=== PATIENT | female | born 1975 | race American Indian/Alaskan Native ===

== ENCOUNTER 2020-05-23 11:27 | Emergency (ER) | payer MEDICARE ==
--- NOTE | 2020-05-23 11:40 | Event Note ---
ED Screening Note Date of service: 05/23/20 Time: 11:39 ED Screening Note: Patient presents with complaints of heavy vaginal bleeding and pelvic pain x yesterday States history of uterine fibroids and anemia, reports has had to have blood transfusions Admits to fatigue This initial assessment/diagnostic orders/clinical plan/treatment(s) is/are subject to change based on patients health status, clinical progression and re- assessment by fellow clinical providers in the ED. Further treatment and workup at subsequent clinical providers discretion. Patient/guardian urged not to elope from the ED as their condition may be serious if not clinically assessed and managed. Initial orders include: Labs
[2020-05-23 12:20] LABS: Basophils % (Auto) 0.4 % (0.0-1.8); Eosinophils # (Auto) 0.4 K/mm3 (0.0-0.4); Eosinophils % (Auto) 4.2 % (0.0-4.3); Hemoglobin 11.1 gm/dl (10.1-14.3); Lymphocytes # (Auto) 3.3 K/mm3 (1.2-5.4); Lymphocytes % (Auto) 38.1 % (13.4-35.0); Mean Corpuscular HGB Conc 34 % (30-34); Mean Corpuscular Volume 78 fl (79-97); Monocytes # (Auto) 0.9 K/mm3 (0.0-0.8); Monocytes % (Auto) 10.6 % (0.0-7.3); Platelet Count 410 K/mm3 (140-440); Red Blood Count 4.23 M/mm3 (3.65-5.03); Red Cell Distribution Width 19.3 % (13.2-15.2)
[2020-05-23 12:42] LABS: Alanine Aminotransferase 30 units/L (7-56); BUN/Creatinine Ratio 13; Blood Urea Nitrogen 10 mg/dL (7-17); Calcium 10.1 mg/dL (8.4-10.2); Hemolysis Index 8
[2020-05-23 13:31] LABS: Bilirubin,Urine TNR (Negative); Color,Urine Red (Yellow); RBC,Urine > 182.0 /HPF (0.0-6.0)
[2020-05-23 13:32] LABS: Blood,Urine TNR (Negative); PH,Urine TNR (5.0-7.0); Protein,Urine TNR mg/dL (Negative); Urobilinogen,Urine TNR mg/dL (<2.0)
[2020-05-23] MEDS ORDERED: ONDANSETRON 4 MG/2 ML INJ IV ONE (14:10)
[2020-05-23] MEDS ORDERED: KETOROLAC 30 MG/1 ML INJ IV ONE (14:10)
[2020-05-23] MEDS ORDERED: SODIUM CHLORIDE 0.9% 1000 ML 1,000 ML IV ONE (14:10)
--- NOTE | 2020-05-23 14:18 | Emergency Department Report ---
ED General Adult HPI - General Chief complaint: Vaginal Bleeding Stated complaint: NAUSEA/ABNORMAL PERIOD/PAIN Time Seen by Provider: 05/23/20 11:38 Source: patient Mode of arrival: Ambulatory Limitations: No Limitations - History of Present Illness Initial comments: Patient is a 45-year-old female with history of heavy bleeding secondary to uterine fibroids who presents to the emergency department with complaint of abdominal pain, nausea, heavy vaginal bleeding. Patient states that this has happened since yesterday. She denies vomiting but has had some nausea. She states that she was scheduled to have her fibroids removed in 2019 however this was canceled due to Covid. She is not currently . She states she is not currently on control. - Related Data Previous Rx's Medication Instructions Recorded Last Taken Type Ketorolac [Toradol] 10 mg PO Q6H PRN 5 Days #20 tablet 05/23/20 Unknown Rx Nitrofurantoin [place]/M-Cryst 100 mg PO Q12HR 5 Days #10 capsule 05/23/20 Unknown Rx [Macrobid CAP] Ondansetron [Zofran Odt] 4 mg PO Q8HR PRN #20 tab.rapdis 05/23/20 Unknown Rx medroxyPROGESTERone ACETATE 10 mg PO QDAY 10 Days #10 tablet 05/23/20 Unknown Rx [Provera] Allergies Allergy/AdvReac Type Severity Reaction Status Date / Time morphine Allergy Rash Verified 05/23/20 11:40 ED Review of Systems ROS: Stated complaint: NAUSEA/ABNORMAL PERIOD/PAIN Other details as noted in HPI Constitutional: denies: chills, diaphoresis, fever Eyes: denies: eye discharge ENT: denies: throat pain Respiratory: no symptoms reported Cardiovascular: denies: chest pain Endocrine: no symptoms reported Gastrointestinal: abdominal pain, nausea Genitourinary: other (Vaginal bleeding). denies: dysuria Musculoskeletal: denies: back pain Skin: denies: rash Neurological: denies: headache Psychiatric: denies: anxiety, depression Hematological/Lymphatic: easy bleeding ED Past Medical Hx - Past Medical History Previous Medical History?: No - Surgical History Past Surgical History?: Yes Additional Surgical History: C section - Social History Smoking Status: Never Smoker Substance Use Type: None - Medications Home Medications: Home Medications Medication Instructions Recorded Confirmed Last Taken Type Ketorolac [Toradol] 10 mg PO Q6H PRN 5 Days #20 tablet 05/23/20 Unknown Rx Nitrofurantoin [place]/M-Cryst 100 mg PO Q12HR 5 Days #10 capsule 05/23/20 Unknown Rx [Macrobid CAP] Ondansetron [Zofran Odt] 4 mg PO Q8HR PRN #20 tab.rapdis 05/23/20 Unknown Rx medroxyPROGESTERone ACETATE 10 mg PO QDAY 10 Days #10 tablet 05/23/20 Unknown Rx [Provera] ED Physical Exam - General Limitations: No Limitations General appearance: alert - Head Head exam: Present: atraumatic, normocephalic - Eye Eye exam: Present: normal appearance Pupils: Present: normal accommodation - ENT ENT exam: Present: normal exam - Neck Neck exam: Present: normal inspection - Respiratory Respiratory exam: Absent: respiratory distress - Cardiovascular Cardiovascular Exam: Present: other (Warm well perfused extremities) - GI/Abdominal GI/Abdominal exam: Present: soft, tenderness (Suprapubic). Absent: distended - Rectal Rectal exam: Present: deferred - External exam: Present: other (Patient has deferred exam) - Extremities Exam Extremities exam: Present: normal inspection - Back Exam Back exam: Present: normal inspection - Neurological Exam Neurological exam: Present: alert, oriented X3 - Psychiatric Psychiatric exam: Present: normal affect - Skin Skin exam: Present: warm, dry, intact ED Course Vital Signs 05/23/20 11:39 Temperature 98.4 F Pulse Rate 85 Respiratory 16 Rate Blood Pressure 132/68 [Right] O2 Sat by Pulse 98 Oximetry - Reevaluation(s) Reevaluation #1: 05/23/20 15:27 Patient is improved. She is tolerating p.o. We discussed putting patient on control or a medication to stop the heavy bleeding. We have decided on Provera. Patient to follow-up with [facility]PUT[facility] AIDE. ED Medical Decision Making - Lab Data Result diagrams: 05/23/20 11:41 05/23/20 11:41 - Medical Decision Making Patient is a 45-year-old female with history of uterine fibroids who presents to the ED with complaint of heavy vaginal bleeding. LMP yesterday, she is currently soaking pads every 2 hours. Initial evaluation reveals a soft abdomen with mild suprapubic ttp. She is hemodynamically stable and appears comfortable. She would like to defer a pelvic exam and US. test is negative. Plan to treat for mild UTI, give zofran, toradol, NS. Will reassess. Critical care attestation.: If time is entered above; I have spent that time in minutes in the direct care of this critically ill patient, excluding procedure time. ED Disposition Clinical Impression: UTI (urinary tract infection), Menorrhagia, Nausea Disposition: TO HOME OR SELFCARE Is pt being admited?: No Does the pt Need Aspirin: No Condition: Stable Instructions: Abnormal Uterine Bleeding, [id number], Urinary Tract Infection, Adult Prescriptions: Nitrofurantoin [place]/M-Cryst [Macrobid CAP] 100 mg PO Q12HR 5 Days #10 capsule medroxyPROGESTERone ACETATE [Provera] 10 mg PO QDAY 10 Days #10 tablet Ketorolac [Toradol] 10 mg PO Q6H PRN 5 Days #20 tablet PRN Reason: Pain Ondansetron [Zofran Odt] 4 mg PO Q8HR PRN #20 tab.rapdis PRN Reason: Nausea Referrals: TAZ CLANCY [Other] - 3-5 Days LEEROY VAUGHN JR, MD [Staff Physician] - 3-5 Days
[2020-05-23 15:55] VITALS: BP 132/72
== END 2020-05-23 15:55 | disposition home or self-care (01) ==
LOC: ED 11:27
DX: N39.0 Urinary tract infection, site not specified (principal); N92.0 Excessive and frequent menstruation with regular cycle; R11.0 Nausea; Z98.890 Other specified postprocedural states; Z79.899 Other long term (current) drug therapy; Z88.8 Allergy status to other drugs, medicaments and biological substances
CPT/HCPCS: 36415; 80053; 81001; 84703; 85025; 86850; 86900; 86901; 87086; 96361; 96374; 96375; 99283; J1885; J2405; J7030

== ENCOUNTER 2020-07-28 09:00 | Emergency (ER) | payer MEDICARE ==
[2020-07-28 09:15] VITALS: BP 112/72
[2020-07-28] MEDS ORDERED: KETOROLAC 60 MG/2 ML INJ IM ONE (09:26)
--- NOTE | 2020-07-28 09:26 | Emergency Department Report ---
ED Lower Extremity HPI - General Chief Complaint: Extremity Injury, Lower Stated Complaint: RT KNEE PAIN/MED REFILL Time Seen by Provider: 07/28/20 09:24 Source: patient Mode of arrival: Ambulatory Limitations: No Limitations - History of Present Illness Initial Comments: Patient is a 45-year-old pleasant -[place] female that comes to the ER with right knee pain. She has recently started working out and has noticed some swelling to her lateral upper kneecap area. She has no fall or trauma per se. She is ambulatory. -: Gradual, days(s) Injury: Knee: Right Place: home Severity: mild Improves With: immobilization Worsens With: movement - Related Data Previous Rx's Medication Instructions Recorded Last Taken Type Naproxen [Naprosyn] 500 mg PO BID PRN #20 tablet 07/28/20 Unknown Rx predniSONE [Deltasone] 20 mg PO DAILY #5 tablet 07/28/20 Unknown Rx Allergies Allergy/AdvReac Type Severity Reaction Status Date / Time morphine Allergy Rash Verified 07/28/20 09:11 ED Review of Systems ROS: Stated complaint: RT KNEE PAIN/MED REFILL Other details as noted in HPI Comment: All other systems reviewed and negative ED Past Medical Hx - Past Medical History Previous Medical History?: No - Surgical History Past Surgical History?: Yes Additional Surgical History: C section - Social History Smoking Status: Never Smoker Substance Use Type: Alcohol - Medications Home Medications: Home Medications Medication Instructions Recorded Confirmed Last Taken Type Naproxen [Naprosyn] 500 mg PO BID PRN #20 tablet 07/28/20 Unknown Rx predniSONE [Deltasone] 20 mg PO DAILY #5 tablet 07/28/20 Unknown Rx ED Physical Exam - General Limitations: No Limitations General appearance: alert, in no apparent distress - Head Head exam: Present: atraumatic, normocephalic - Eye Eye exam: Present: normal appearance - ENT ENT exam: Present: mucous membranes moist - Neck Neck exam: Present: normal inspection - Respiratory Respiratory exam: Present: normal lung sounds bilaterally. Absent: respiratory distress - Cardiovascular Cardiovascular Exam: Present: regular rate, normal rhythm. Absent: systolic murmur, diastolic murmur, rubs, gallop - GI/Abdominal GI/Abdominal exam: Present: soft, normal bowel sounds - Extremities Exam Extremities exam: Present: normal inspection - Expanded Lower Extremity Exam Right Upper Leg exam: Present: normal inspection Knee exam: Present: full ROM, swelling, effusion, full knee extension. Absent: tenderness, abrasion, laceration, ecchymosis, deformity, crepidus, dislocation, erythema Lower Leg exam: Present: normal inspection, full ROM Ankle exam: Present: normal inspection, full ROM Foot/Toe exam: Present: normal inspection Neuro vascular tendon exam: Present: no vascular compromise Gait: Positive: observed and limited by pain 1 - small effusion - Back Exam Back exam: Present: normal inspection - Neurological Exam Neurological exam: Present: alert, oriented X3 - Psychiatric Psychiatric exam: Present: normal affect, normal mood - Skin Skin exam: Present: warm, dry, intact, normal color. Absent: rash ED Course Vital Signs 07/28/20 09:14 Temperature 98.5 F Pulse Rate 73 Respiratory 20 Rate Blood Pressure 112/72 O2 Sat by Pulse 100 Oximetry ED Lower Extremity MDM - Medical Decision Making soft tissue injury/no fall small effusion on exam immobilizer and crutches for comfort IM toradol dc home with dc poc including pcp and ortho follow up referrals given pt asked for refill of valium - told her we can not do that in ER - she will need to see her pcp Vital Signs 07/28/20 09:14 Temperature 98.5 F Pulse Rate 73 Respiratory 20 Rate Blood Pressure 112/72 O2 Sat by Pulse 100 Oximetry - Differential Diagnosis effusion Critical care attestation.: If time is entered above; I have spent that time in minutes in the direct care of this critically ill patient, excluding procedure time. ED Disposition Clinical Impression: Knee pain, right Disposition: DC-01 TO HOME OR SELFCARE Is pt being admited?: No Does the pt Need Aspirin: No Condition: Stable Instructions: Knee Effusion Additional Instructions: immobilizer and crutches for comfort med as ordered today follow up with pcp and ortho referrals below Prescriptions: predniSONE [Deltasone] 20 mg PO DAILY #5 tablet Naproxen [Naprosyn] 500 mg PO BID PRN #20 tablet PRN Reason: Pain Referrals: PRIMARY MD NGA [Primary Care Provider] - 3-5 Days LORI FRAGOSO MD [Staff Physician] - 3-5 Days SAMY VALENCIA MD [Staff Physician] - 3-5 Days Time of Disposition: 09:35
== END 2020-07-28 10:27 | disposition home or self-care (01) ==
LOC: ED 09:00
DX: M25.561 Pain in right knee (principal); Z98.890 Other specified postprocedural states; Z79.899 Other long term (current) drug therapy; Z88.6 Allergy status to analgesic agent
CPT/HCPCS: 96372; 99283; J1885

== ENCOUNTER 2020-09-17 03:04 | Emergency (ER) | payer MEDICARE ==
[2020-09-17 03:12] VITALS: BP 155/76
[2020-09-17 03:36] LABS: Bilirubin,Urine NEG (Negative); Blood,Urine LG (Negative); Color,Urine Red (Yellow); Mucus,Urine FEW /HPF; Urobilinogen,Urine < 2.0 mg/dL (<2.0)
[2020-09-17 03:37] LABS: RBC,Urine > 182.0 /HPF (0.0-6.0)
[2020-09-17] MEDS ORDERED: FAMOTIDINE 20 MG/2 ML INJ IV ONE (03:42)
[2020-09-17] MEDS ORDERED: ONDANSETRON 4 MG/2 ML INJ IV ONE (03:42)
[2020-09-17] MEDS ORDERED: DICYCLOMINE 20 MG/2 ML INJ IM ONE (03:42)
[2020-09-17] MEDS ORDERED: SODIUM CHLORIDE 0.9% 1000 ML 1,000 ML IV ONE (03:43)
[2020-09-17 04:48] LABS: Basophils # (Auto) 0.1 K/mm3 (0.0-0.1); Basophils % (Auto) 0.6 % (0.0-1.8); Eosinophils # (Auto) 0.2 K/mm3 (0.0-0.4); Hematocrit 33.8 % (30.3-42.9); Hemoglobin 10.7 gm/dl (10.1-14.3); Lymphocytes # (Auto) 2.2 K/mm3 (1.2-5.4); Lymphocytes % (Auto) 21.9 % (13.4-35.0); Mean Corpuscular HGB Conc 32 % (30-34); Mean Corpuscular Volume 78 fl (79-97); Monocytes # (Auto) 0.7 K/mm3 (0.0-0.8); Monocytes % (Auto) 6.5 % (0.0-7.3); Platelet Count 409 K/mm3 (140-440); Red Blood Count 4.32 M/mm3 (3.65-5.03); Red Cell Distribution Width 17.7 % (13.2-15.2)
[2020-09-17 05:36] LABS: Alanine Aminotransferase 17 units/L (7-56); BUN/Creatinine Ratio 11; Blood Urea Nitrogen 9 mg/dL (7-17); Calcium 9.9 mg/dL (8.4-10.2); Hemolysis Index 8
--- NOTE | 2020-09-17 05:42 | Emergency Department Report ---
ED N/V/D HPI - General Chief complaint: Abdominal Pain Stated complaint: POSSIBLE FOOD POISONING Source: patient Mode of arrival: Ambulatory Limitations: No Limitations - History of Present Illness Initial comments: Patient is a 45-year-old -[place] female with a history of iron deficiency anemia and anemia who presents to the ED with complaint of acute onset persistent intractable nausea, vomiting, diarrhea and epigastric pain with lack of appetite for the last 2 hours after eating salad from a fast food restaurant 6 hours prior to arrival in the ED for evaluation. Patient states that she has not been able to keep anything down since the onset of symptoms. Patient states that she has had multiple nausea, vomiting and diarrhea episodes and that her pain is mainly epigastric and that it gets worse whenever she has vomiting episodes. Patient states that she is currently on her menstrual cycle. Patient denies hematemesis, fever, chills, dizziness, syncope, headache, dysuria, urine frequency and urgency, hematochezia, chest pain or shortness of breath, cough, sore throat, change in vision or back pain. MD complaint: nausea, vomiting, diarrhea, abdominal pain -: Sudden, hour(s) (2) Description of Vomiting: food contents, watery, bilious Description of Diarrhea: water Associated Abdominal Pain: Yes (diffuse) Location: diffuse Radiation: none Severity: moderate Pain Scale: 7 Quality: cramping, dull Consistency: constant Improves with: none Worsens with: eating, vomiting Context: possible food poisoning Associated Symptoms: denies other symptoms, loss of appetite, malaise, n ausea/vomiting. denies: myalgias, chest pain, cough, diaphoresis, fever/chills, headaches, rash, dysuria, shortness of breath, syncope, weakness, other - Related Data Previous Rx's Medication Instructions Recorded Last Taken Type Naproxen [Naprosyn] 500 mg PO BID PRN #20 tablet 07/28/20 Unknown Rx predniSONE [Deltasone] 20 mg PO DAILY #5 tablet 07/28/20 Unknown Rx Dicyclomine [Bentyl] 20 mg PO Q6H PRN #30 tablet 09/17/20 Unknown Rx Famotidine [Pepcid] 20 mg PO BID #60 tablet 09/17/20 Unknown Rx Ondansetron [Zofran Odt] 4 mg PO Q6HR PRN #20 tab.rapdis 09/17/20 Unknown Rx Allergies Allergy/AdvReac Type Severity Reaction Status Date / Time morphine Allergy Rash Verified 07/28/20 09:11 ED Review of Systems ROS: Stated complaint: POSSIBLE FOOD POISONING Other details as noted in HPI Constitutional: denies: chills, fever Eyes: denies: eye pain, eye discharge, vision change ENT: denies: ear pain, throat pain Respiratory: denies: cough, shortness of breath, wheezing Cardiovascular: denies: chest pain, palpitations Endocrine: no symptoms reported Gastrointestinal: abdominal pain, nausea, vomiting, diarrhea Genitourinary: denies: urgency, dysuria, discharge Musculoskeletal: denies: back pain, joint swelling, arthralgia Skin: denies: rash, lesions Neurological: denies: headache, weakness, paresthesias Psychiatric: denies: anxiety, depression Hematological/Lymphatic: denies: easy bleeding, easy bruising ED Past Medical Hx - Past Medical History Previous Medical History?: Yes Additional medical history: Anemia - Surgical History Past Surgical History?: Yes Additional Surgical History: C section - Social History Smoking Status: Former Smoker Substance Use Type: None - Medications Home Medications: Home Medications Medication Instructions Recorded Confirmed Last Taken Type Naproxen [Naprosyn] 500 mg PO BID PRN #20 tablet 07/28/20 Unknown Rx predniSONE [Deltasone] 20 mg PO DAILY #5 tablet 07/28/20 Unknown Rx Dicyclomine [Bentyl] 20 mg PO Q6H PRN #30 tablet 09/17/20 Unknown Rx Famotidine [Pepcid] 20 mg PO BID #60 tablet 09/17/20 Unknown Rx Ondansetron [Zofran Odt] 4 mg PO Q6HR PRN #20 tab.rapdis 09/17/20 Unknown Rx ED Physical Exam - General Limitations: No Limitations General appearance: alert, in no apparent distress - Head Head exam: Present: atraumatic, normocephalic, normal inspection - Eye Eye exam: Present: normal appearance, PERRL, EOMI Pupils: Present: normal accommodation - ENT ENT exam: Present: normal exam, normal orophraynx, mucous membranes moist, TM's normal bilaterally, normal external ear exam - Neck Neck exam: Present: normal inspection, full ROM - Respiratory Respiratory exam: Present: normal lung sounds bilaterally. Absent: respiratory distress, wheezes, rales, stridor, chest wall tenderness, accessory muscle use, decreased breath sounds, prolonged expiratory - Cardiovascular Cardiovascular Exam: Present: regular rate, normal rhythm, normal heart sounds. Absent: systolic murmur, diastolic murmur, rubs, gallop - GI/Abdominal GI/Abdominal exam: Present: soft, normal bowel sounds. Absent: tenderness, gua rding, hyperactive bowel sounds, hypoactive bowel sounds, organomegaly - Extremities Exam Extremities exam: Present: normal inspection, full ROM, normal capillary refill - Back Exam Back exam: Present: normal inspection, full ROM. Absent: tenderness, CVA tenderness (R), CVA tenderness (L), muscle spasm, paraspinal tenderness, vertebral tenderness - Neurological Exam Neurological exam: Present: alert, oriented X3, CN II-XII intact, normal gait, reflexes normal - Psychiatric Psychiatric exam: Present: normal affect, normal mood - Skin Skin exam: Present: warm, dry, intact, normal color. Absent: rash ED Course Vital Signs 09/17/20 03:09 Temperature 98.9 F Pulse Rate 84 Respiratory 20 Rate Blood Pressure 155/76 O2 Sat by Pulse 99 Oximetry ED Medical Decision Making - Lab Data Result diagrams: 09/17/20 04:16 09/17/20 04:16 - Medical Decision Making This is a 45-year-old -[place] female with a history of iron deficiency anemia and anemia who presents to the ED with complaint of acute onset persistent intractable nausea, vomiting, diarrhea and epigastric pain with lack of appetite for the last 2 hours after eating salad from a fast food restaurant 6 hours prior to arrival in the ED for evaluation. Patient states that she has not been able to keep anything down since the onset of symptoms. Patient states that she has had multiple nausea, vomiting and diarrhea episodes and that her pain is mainly epigastric and that it gets worse whenever she has vomiting episodes. Patient states that she is currently on her menstrual cycle. In the ED, patient is alert and oriented x3 and is not in any distress and is hemodynamically stable. Patient was treated in the ED with antiemetics, antacids and pain medications. Patient also received normal saline 1 L IV bolus x1. Lab test results were reviewed and are all nonactionable. On reevaluation, patient symptoms resolved in the ED with treatment, patient passed oral fluid challenge in the ED. Based on the history and physical exam findings, the patient symptoms are likely due to viral gastroenteritis due to food poisoning. Other differential diagnoses were also considered including GERD or dehydration. Patient was therefore discharged home on antiemetics, antacids and pain medications. Patient was advised to maintain a clear liquid diet for 12 to 24 hours while taking medications, and was advised to follow-up with her primary care physician in 3 to 5 days for reevaluation. Patient is advised return to the ED immediately if symptoms get worse. - Differential Diagnosis gastroenteritis; GERD; Dehydration; UTI Critical care attestation.: If time is entered above; I have spent that time in minutes in the direct care of this critically ill patient, excluding procedure time. ED Disposition Clinical Impression: Viral gastroenteritis, Nausea, vomiting and diarrhea Disposition: TO HOME OR SELFCARE Is pt being admited?: No Does the pt Need Aspirin: No Condition: Stable Instructions: Abdominal Pain (ED), Viral Gastroenteritis, Adult, [id number], Nausea and Vomiting, Adult, [id number], Diarrhea, Adult, [id number] Additional Instructions: Lab test results were reviewed and are all nonactionable. Your symptoms are likely due to viral gastroenteritis following food poisoning. Therefore maintain a clear liquid diet for 12-24 hrs., drink plenty of fluids and take medications for nausea and vomiting as advised. Return to the ED immediately if symptoms get worse. Otherwise follow-up with your primary care physician in 3 to 5 days for reevaluation. Prescriptions: Dicyclomine [Bentyl] 20 mg PO Q6H PRN #30 tablet PRN Reason: abdominal pain Famotidine [Pepcid] 20 mg PO BID #60 tablet Ondansetron [Zofran Odt] 4 mg PO Q6HR PRN #20 tab.rapdis PRN Reason: Nausea And Vomiting Referrals: [facility] [Provider Group] - 3-5 Days Forms: Work/School Release Form(ED) Time of Disposition: 05:45 Print Language: ANGUILLAN
== END 2020-09-17 06:11 | disposition home or self-care (01) ==
LOC: ED 03:04
DX: A08.4 Viral intestinal infection, unspecified (principal); R11.2 Nausea with vomiting, unspecified; Z98.890 Other specified postprocedural states; Z87.891 Personal history of nicotine dependence; Z79.899 Other long term (current) drug therapy; Z88.8 Allergy status to other drugs, medicaments and biological substances
CPT/HCPCS: 36415; 80053; 81001; 83690; 84703; 85025; 96361; 96372; 96374; 96375; 99283; J0500; J2405; J7030

== ENCOUNTER 2020-10-25 14:49 | Emergency (ER) | payer MEDICARE ==
[2020-10-25 15:28] VITALS: BP 134/84
--- NOTE | 2020-10-25 15:44 | Event Note ---
ED Screening Note Date of service: 10/25/20 Time: 15:42 ED Screening Note: 45-year-old female patient presents emergency department with complaints of diffuse pruritus and facial swelling starting last night and worsening this morning. Patient suspects she is experiencing an allergic reaction to a new type of hair dye she used last night. Patient has washed the dye out of her hair. Patient took 50 mg of Benadryl at approximately 12:30 PM. Tachycardic in triage. General: Awake, appropriately interactive, no acute distress. ENT: Airway is patent. No angioedema. Neck: Supple. Full range of motion intact. Cardiovascular: Normal peripheral perfusion. Pulmonary: Clear to auscultation bilaterally. No wheezing or stridor. No hypoxia. No respiratory distress. Speaking in full sentences. Skin: No apparent rashes or lesions. Neurological: No facial asymmetry. Speech is clear. Follows commands. Patient is alert and oriented. Musculoskeletal: Moves all four extremities spontaneously with normal range of motion. Psych: Cooperative. Appropriate mood and affect. I have greeted and performed a focused rapid initial assessment of this patient. A comprehensive ED assessment and evaluation of the patient, analysis of all test results, and completion of the medical decision-making process will be conducted by additional ED providers. This initial assessment/diagnostic orders/clinical plan/treatment(s) is/are subject to change based on patients health status, clinical progression and re-assessment. Further treatment and workup at subsequent clinical provider's discretion. Patient/guardian urged not to elope from the ED as their condition may be serious if not clinically a ssessed and managed.
[2020-10-25] MEDS ORDERED: SODIUM CHLORIDE 0.9% 1000 ML 1,000 ML IV ONE (21:09)
[2020-10-25] MEDS ORDERED: diphenhydrAMINE 50 MG/ML VIAL IV STA (21:09)
[2020-10-25] MEDS ORDERED: dexAMETHasone 4 MG/ML VIAL IV ONE (21:09)
[2020-10-25] MEDS ORDERED: FAMOTIDINE 20 MG/2 ML INJ IV ONE (21:10)
--- NOTE | 2020-10-25 21:21 | Emergency Department Report ---
ED Allergic Reaction HPI - General Chief complaint: Allergic Reaction Stated complaint: ALLERGIC REACTION/ALL OVER Time Seen by Provider: 10/25/20 21:09 Source: patient Mode of arrival: Ambulatory Limitations: No Limitations - History of Present Illness Initial Comments: Very pleasant 45-year-old F [place] female presents emerged department complaining pruritus and swelling to her face after trying to her hair a day or so ago and having a reaction to the chemical. She was states since using the dye she is having very painful itching burning scalp followed by facial swelling lip tingling and tingling to the tongue. She reports no drooling or odynophagia. Ports no fever, chills, sweats. No chest pain no notes no shortness of breath or wheezing. No rash no rashes to any other portions of the body MD Complaint: allergic reaction, facial swelling - Related Data Previous Rx's Medication Instructions Recorded Last Taken Type Naproxen [Naprosyn] 500 mg PO BID PRN #20 tablet 07/28/20 Unknown Rx predniSONE [Deltasone] 20 mg PO DAILY #5 tablet 07/28/20 Unknown Rx Dicyclomine [Bentyl] 20 mg PO Q6H PRN #30 tablet 09/17/20 Unknown Rx Famotidine [Pepcid] 20 mg PO BID #60 tablet 09/17/20 Unknown Rx Ondansetron [Zofran Odt] 4 mg PO Q6HR PRN #20 tab.rapdis 09/17/20 Unknown Rx hydrOXYzine HCL [Atarax] 25 mg PO Q6HR PRN #20 tablet 10/25/20 Unknown Rx predniSONE [Deltasone] 20 mg PO QDAY #5 tab 10/25/20 Unknown Rx Allergies Allergy/AdvReac Type Severity Reaction Status Date / Time morphine Allergy Rash Verified 07/28/20 09:11 ED Review of Systems ROS: Stated complaint: ALLERGIC REACTION/ALL OVER Other details as noted in HPI Comment: All other systems reviewed and negative ED Past Medical Hx - Past Medical History Previous Medical History?: No Additional medical history: Anemia - Surgical History Past Surgical History?: Yes Additional Surgical History: C section - Social History Smoking Status: Former Smoker Substance Use Type: None - Medications Home Medications: Home Medications Medication Instructions Recorded Confirmed Last Taken Type Naproxen [Naprosyn] 500 mg PO BID PRN #20 tablet 07/28/20 Unknown Rx predniSONE [Deltasone] 20 mg PO DAILY #5 tablet 07/28/20 Unknown Rx Dicyclomine [Bentyl] 20 mg PO Q6H PRN #30 tablet 09/17/20 Unknown Rx Famotidine [Pepcid] 20 mg PO BID #60 tablet 09/17/20 Unknown Rx Ondansetron [Zofran Odt] 4 mg PO Q6HR PRN #20 tab.rapdis 09/17/20 Unknown Rx hydrOXYzine HCL [Atarax] 25 mg PO Q6HR PRN #20 tablet 10/25/20 Unknown Rx predniSONE [Deltasone] 20 mg PO QDAY #5 tab 10/25/20 Unknown Rx ED Physical Exam - General Limitations: No Limitations General appearance: alert, in no apparent distress - Head Head exam: Present: normocephalic - Expanded Head Exam Expanded Head exam: Present: general tenderness 1 - Erythema redness tenderness with palpation 2 - Redness swelling to the 3 - Facial swelling some swelling to this region. - Eye Eye exam: Present: normal appearance, PERRL, EOMI Pupils: Present: normal accommodation - ENT ENT exam: Present: normal exam, mucous membranes moist, other (Swelling to the periorbital region. Tongue is of normal size.) - Neck Neck exam: Present: normal inspection, full ROM - Respiratory Respiratory exam: Present: normal lung sounds bilaterally. Absent: respiratory distress, wheezes, rales, chest wall tenderness, accessory muscle use, decreased breath sounds - Cardiovascular Cardiovascular Exam: Present: regular rate, normal rhythm. Absent: systolic murmur, diastolic murmur, rubs, gallop - GI/Abdominal GI/Abdominal exam: Present: soft, normal bowel sounds - Extremities Exam Extremities exam: Present: normal inspection - Back Exam Back exam: Present: normal inspection - Neurological Exam Neurological exam: Present: alert, oriented X3 - Psychiatric Psychiatric exam: Present: normal affect, normal mood - Skin Skin exam: Present: warm, dry, erythema. Absent: rash ED Course Vital Signs 10/25/20 15:22 Pulse Rate 117 H Respiratory 18 Rate Blood Pressure 134/84 [Right] O2 Sat by Pulse 99 Oximetry ED Medical Decision Making - Medical Decision Making This patient presents with symptoms consistent with acute hypersensitivity reaction, likely acute allergic reaction. Presentation not consistent with acute anaphylaxis (lack of pulmonary, dermatologic, cardiovascular or GI symptoms, lack of hypotension or exposure to known allergen), angioedema, serum sickness(no recent drug exposure, lack of fevers, arthralgias), ingestion of pre formed toxin. No evidence of airway compromise or shock at this time. Plan to treat for allergic reaction with H2/H1 blockers, steroids. No indication for epinephrine at this time. Plan Critical care attestation.: If time is entered above; I have spent that time in minutes in the direct care of this critically ill patient, excluding procedure time. ED Disposition Clinical Impression: Allergic reaction Disposition: DC-01 TO HOME OR SELFCARE Is pt being admited?: No Does the pt Need Aspirin: No Condition: Stable Instructions: Contact Dermatitis, Allergies, Adult Prescriptions: hydrOXYzine HCL [Atarax] 25 mg PO Q6HR PRN #20 tablet PRN Reason: Itching predniSONE [Deltasone] 20 mg PO QDAY #5 tab Referrals: PRIMARY CARE, [Primary Care Provider] - 3-5 Days [facility] [Provider Group] - 3-5 Days
== END 2020-10-25 22:20 | disposition home or self-care (01) ==
LOC: ED 14:49
DX: T78.40XA Allergy, unspecified, initial encounter (principal); Z98.890 Other specified postprocedural states; Z87.891 Personal history of nicotine dependence; Z79.899 Other long term (current) drug therapy; Z88.8 Allergy status to other drugs, medicaments and biological substances; X58.XXXA Exposure to other specified factors, initial encounter
CPT/HCPCS: 96361; 96374; 96375; 99282; J1100; J1200; J7030

== ENCOUNTER 2021-05-06 02:10 | Emergency (ER) | payer MEDICARE ==
--- NOTE | 2021-05-06 02:49 | XRay Report ---
XR chest routine 2V INDICATION / CLINICAL INFORMATION: CHEST PAIN. COMPARISON: None available. FINDINGS: SUPPORT DEVICES: None. HEART /PULMONARY VASCULATURE: No significant abnormality. LUNGS / PLEURA: No significant pulmonary or pleural abnormality. No pneumothorax. ADDITIONAL FINDINGS: No significant additional findings. IMPRESSION: 1. No acute findings. Signer Name: Alexander Olivarez MD Signed: 05/06/2021 2:44 AM Workstation Name: [id number]
[2021-05-06 03:15] LABS: Basophils # (Auto) 0.1 K/mm3 (0.0-0.1); Eosinophils # (Auto) 0.3 K/mm3 (0.0-0.4); Eosinophils % (Auto) 3.1 % (0.0-4.3); Hematocrit 35.3 % (30.3-42.9); Lymphocytes # (Auto) 2.9 K/mm3 (1.2-5.4); Mean Corpuscular HGB Conc 31 % (30-34); Mean Corpuscular Volume 78 fl (79-97); Monocytes # (Auto) 0.7 K/mm3 (0.0-0.8); Monocytes % (Auto) 8.4 % (0.0-7.3); Platelet Count 398 K/mm3 (140-440); Red Blood Count 4.54 M/mm3 (3.65-5.03)
[2021-05-06 03:56] LABS: Alanine Aminotransferase 15 units/L (7-56); BUN/Creatinine Ratio 14; Blood Urea Nitrogen 11 mg/dL (7-17); Calcium 9.9 mg/dL (8.4-10.2)
[2021-05-06 03:57] LABS: Hemolysis Index 8
--- NOTE | 2021-05-06 04:27 | Emergency Department Report ---
ED Chest Pain HPI - General Chief Complaint: Chest Pain Stated Complaint: CHEST PAIN Time Seen by Provider: 05/06/21 02:48 Source: patient Mode of arrival: Ambulatory Limitations: No Limitations - History of Present Illness Initial Comments: Patient 45-year-old female who presents for generalized anterior chest wall pain x1 week. Patient denies fevers chills there is no nausea no vomiting no dizziness no headache no lightheadedness. Symptoms are exacerbated by deep respiration and movement. Symptoms are relieved by nothing tried. MD Complaint: chest pain - Related Data Previous Rx's Medication Instructions Recorded Last Taken Type Naproxen [Naprosyn] 500 mg PO BID PRN #20 tablet 07/28/20 Unknown Rx predniSONE [Deltasone] 20 mg PO DAILY #5 tablet 07/28/20 Unknown Rx Dicyclomine [Bentyl] 20 mg PO Q6H PRN #30 tablet 09/17/20 Unknown Rx Famotidine [Pepcid] 20 mg PO BID #60 tablet 09/17/20 Unknown Rx Ondansetron [Zofran Odt] 4 mg PO Q6HR PRN #20 tab.rapdis 09/17/20 Unknown Rx hydrOXYzine HCL [Atarax] 25 mg PO Q6HR PRN #20 tablet 10/25/20 Unknown Rx predniSONE [Deltasone] 20 mg PO QDAY #5 tab 10/25/20 Unknown Rx Famotidine [Pepcid] 20 mg PO BID #30 tablet 05/06/21 Unknown Rx Ibuprofen [Motrin 800 MG tab] 800 mg PO Q8HR PRN #30 tablet 05/06/21 Unknown Rx Allergies Allergy/AdvReac Type Severity Reaction Status Date / Time morphine Allergy Rash Verified 07/28/20 09:11 Heart Score - HEART Score History: Slightly suspicious EKG: Normal Age: < 45 Risk factors: No known risk factors Troponin: < normal limit HEART Score: 0 - EKG Read Time Time EKG Completed: 02:10 EKG Read Time: 02:10 - Critical Actions Critical Actions: 0-3 pts:0.9-1.7%risk of adverse cardiac event.Candidate for discharge ED Review of Systems ROS: Stated complaint: CHEST PAIN Other details as noted in HPI Constitutional: denies: chills, fever Eyes: denies: eye pain, eye discharge, vision change ENT: denies: ear pain, throat pain Respiratory: cough. denies: shortness of breath, wheezing Cardiovascular: chest pain. denies: palpitations, syncope, paroxysmal nocturnal dyspnea Endocrine: no symptoms reported Gastrointestinal: denies: abdominal pain, nausea, vomiting, diarrhea Genitourinary: urgency Musculoskeletal: denies: back pain, joint swelling, arthralgia Skin: denies: rash, lesions Neurological: denies: headache, weakness, paresthesias Psychiatric: denies: anxiety, depression Hematological/Lymphatic: denies: easy bleeding, easy bruising ED Past Medical Hx - Past Medical History Previous Medical History?: Yes Additional medical history: Anemia - Surgical History Past Surgical History?: Yes Additional Surgical History: C section - Social History Smoking Status: Former Smoker Substance Use Type: None - Medications Home Medications: Home Medications Medication Instructions Recorded Confirmed Last Taken Type Naproxen [Naprosyn] 500 mg PO BID PRN #20 tablet 07/28/20 Unknown Rx predniSONE [Deltasone] 20 mg PO DAILY #5 tablet 07/28/20 Unknown Rx Dicyclomine [Bentyl] 20 mg PO Q6H PRN #30 tablet 09/17/20 Unknown Rx Famotidine [Pepcid] 20 mg PO BID #60 tablet 09/17/20 Unknown Rx Ondansetron [Zofran Odt] 4 mg PO Q6HR PRN #20 tab.rapdis 09/17/20 Unknown Rx hydrOXYzine HCL [Atarax] 25 mg PO Q6HR PRN #20 tablet 10/25/20 Unknown Rx predniSONE [Deltasone] 20 mg PO QDAY #5 tab 10/25/20 Unknown Rx Famotidine [Pepcid] 20 mg PO BID #30 tablet 05/06/21 Unknown Rx Ibuprofen [Motrin 800 MG tab] 800 mg PO Q8HR PRN #30 tablet 05/06/21 Unknown Rx ED Physical Exam - General Limitations: No Limitations ED Course Vital Signs 05/06/21 02:14 Temperature 98.0 F Pulse Rate 95 H Respiratory 18 Rate Blood Pressure 135/77 O2 Sat by Pulse 99 Oximetry ED Medical Decision Making - Lab Data Result diagrams: 05/06/21 02:51 05/06/21 02:51 Labs 05/06/21 05/06/21 02:51 02:51 WBC 8.6 RBC 4.54 Hgb 11.0 Hct 35.3 MCV 78 L MCH 24 L MCHC 31 RDW 19.0 H Plt Count 398 Lymph % (Auto) 33.0 [place] % (Auto) 8.4 H Eos % (Auto) 3.1 Baso % (Auto) 1.0 Lymph # (Auto) 2.9 [place] # (Auto) 0.7 Eos # (Auto) 0.3 Baso # (Auto) 0.1 Seg Neutrophils % 54.5 Seg Neutrophils # 4.7 Sodium 140 Potassium 3.7 Chloride 105.3 Carbon Dioxide 18 L Anion Gap 20 BUN 11 Creatinine 0.8 Estimated GFR > 60 BUN/Creatinine Ratio 14 Glucose 101 H Calcium 9.9 Total Bilirubin 0.20 AST 14 ALT 15 Alkaline Phosphatase 85 Troponin T < 0.010 Total Protein 8.0 Albumin 4.0 Albumin/Globulin Ratio 1.0 - Radiology Data Radiology results: report reviewed, image reviewed XR chest routine 2V INDICATION / CLINICAL INFORMATION: CHEST PAIN. COMPARISON: None available. FINDINGS: SUPPORT DEVICES: None. HEART /PULMONARY VASCULATURE: No significant abnormality. LUNGS / PLEURA: No significant pulmonary or pleural abnormality. No pneumothorax. ADDITIONAL FINDINGS: No significant additional findings. IMPRESSION: 1. No acute findings. Signer Name: Cedric Park MD Signed: 05/06/2021 2:44 AM Workstation Name: [id number] Transcribed By: JS Dictated By: CEDRIC PARK MD Electronically Authenticated By: CEDRIC PARK MD Signed Date/Time: 05/06/21 0244 - Medical Decision Making Heart score 0, chest x-ray no infiltrates no opacities, EKG normal sinus rhythm no ST elevated IA EKG interpreted by ED attending. Vital signs improved. Troponins less than 0.01x2, other labs are normal. Plan DC to home, NSAIDs as needed chest pain, follow-up with your doctor in 2 to 3 days. Return to emergency department should symptoms worsen. Patient verbalized agreement and understanding with discharge plan. Patient DC to home in stable condition at this time Critical care attestation.: If time is entered above; I have spent that time in minutes in the direct care of this critically ill patient, excluding procedure time. ED Disposition Clinical Impression: Chest pain Qualifiers: Chest pain type: unspecified Qualified Code(s): R07.9 - Chest pain, unspecified Disposition: 01 HOME / SELF CARE / HOMELESS Is pt being admited?: No Does the pt Need Aspirin: No Condition: Stable Instructions: Nonspecific Chest Pain, Adult Additional Instructions: Medications as prescribed, follow-up with your doctor in 2 to 3 days. Return to emergency department should symptoms worsen. Prescriptions: Ibuprofen [Motrin 800 MG tab] 800 mg PO Q8HR PRN #30 tablet PRN Reason: pain Famotidine [Pepcid] 20 mg PO BID #30 tablet Referrals: CONNOR TOMLINSON MD [Staff Physician] - 3-5 Days Forms: Work/School Release Form(ED) Time of Disposition: 05:25
--- NOTE | 2021-05-06 05:31 | Emergency Department Report ---
ED General Adult HPI - General Chief complaint: Chest Pain Stated complaint: CHEST PAIN Time Seen by Provider: 05/06/21 02:48 Source: patient Mode of arrival: Ambulatory Limitations: No Limitations - Related Data Previous Rx's Medication Instructions Recorded Last Taken Type Naproxen [Naprosyn] 500 mg PO BID PRN #20 tablet 07/28/20 Unknown Rx predniSONE [Deltasone] 20 mg PO DAILY #5 tablet 07/28/20 Unknown Rx Dicyclomine [Bentyl] 20 mg PO Q6H PRN #30 tablet 09/17/20 Unknown Rx Famotidine [Pepcid] 20 mg PO BID #60 tablet 09/17/20 Unknown Rx Ondansetron [Zofran Odt] 4 mg PO Q6HR PRN #20 tab.rapdis 09/17/20 Unknown Rx hydrOXYzine HCL [Atarax] 25 mg PO Q6HR PRN #20 tablet 10/25/20 Unknown Rx predniSONE [Deltasone] 20 mg PO QDAY #5 tab 10/25/20 Unknown Rx Famotidine [Pepcid] 20 mg PO BID #30 tablet 05/06/21 Unknown Rx Ibuprofen [Motrin 800 MG tab] 800 mg PO Q8HR PRN #30 tablet 05/06/21 Unknown Rx Allergies Allergy/AdvReac Type Severity Reaction Status Date / Time morphine Allergy Rash Verified 07/28/20 09:11 ED Review of Systems ROS: Stated complaint: CHEST PAIN Other details as noted in HPI Constitutional: denies: chills, fever Eyes: denies: eye pain, eye discharge, vision change ENT: denies: ear pain, throat pain Respiratory: cough. denies: shortness of breath, wheezing Cardiovascular: chest pain. denies: palpitations, syncope, paroxysmal nocturnal dyspnea Endocrine: no symptoms reported Gastrointestinal: denies: abdominal pain, nausea, vomiting, diarrhea Genitourinary: urgency Musculoskeletal: denies: back pain, joint swelling, arthralgia Skin: denies: rash, lesions Neurological: denies: headache, weakness, paresthesias Psychiatric: denies: anxiety, depression Hematological/Lymphatic: denies: easy bleeding, easy bruising ED Past Medical Hx - Past Medical History Previous Medical History?: Yes Additional medical history: Anemia - Surgical History Past Surgical History?: Yes Additional Surgical History: C section - Social History Smoking Status: Former Smoker Substance Use Type: None - Medications Home Medications: Home Medications Medication Instructions Recorded Confirmed Last Taken Type Naproxen [Naprosyn] 500 mg PO BID PRN #20 tablet 07/28/20 Unknown Rx predniSONE [Deltasone] 20 mg PO DAILY #5 tablet 07/28/20 Unknown Rx Dicyclomine [Bentyl] 20 mg PO Q6H PRN #30 tablet 09/17/20 Unknown Rx Famotidine [Pepcid] 20 mg PO BID #60 tablet 09/17/20 Unknown Rx Ondansetron [Zofran Odt] 4 mg PO Q6HR PRN #20 tab.rapdis 09/17/20 Unknown Rx hydrOXYzine HCL [Atarax] 25 mg PO Q6HR PRN #20 tablet 10/25/20 Unknown Rx predniSONE [Deltasone] 20 mg PO QDAY #5 tab 10/25/20 Unknown Rx Famotidine [Pepcid] 20 mg PO BID #30 tablet 05/06/21 Unknown Rx Ibuprofen [Motrin 800 MG tab] 800 mg PO Q8HR PRN #30 tablet 05/06/21 Unknown Rx ED Physical Exam - General Limitations: No Limitations General appearance: alert, in no apparent distress - Head Head exam: Present: atraumatic, normocephalic - Eye Eye exam: Present: EOMI Pupils: Present: normal accommodation - ENT ENT exam: Present: mucous membranes moist - Neck Neck exam: Present: normal inspection, full ROM. Absent: tenderness, lymphadenopathy - Respiratory Respiratory exam: Present: normal lung sounds bilaterally. Absent: respiratory distress, wheezes, stridor, chest wall tenderness - Cardiovascular Cardiovascular Exam: Present: regular rate, normal rhythm, normal heart sounds. Absent: systolic murmur, diastolic murmur, rubs, gallop - GI/Abdominal GI/Abdominal exam: Present: soft, normal bowel sounds. Absent: distended, tenderness, guarding, rebound, rigid, bruit, hernia - Rectal Rectal exam: Present: deferred - Extremities Exam Extremities exam: Present: normal inspection, full ROM, normal capillary refill. Absent: tenderness - Back Exam Back exam: Present: normal inspection, full ROM. Absent: CVA tenderness (R), CVA tenderness (L) - Neurological Exam Neurological exam: Present: alert, oriented X3, CN II-XII intact, normal gait - Psychiatric Psychiatric exam: Present: normal affect, normal mood - Skin Skin exam: Present: warm ED Course Vital Signs 05/06/21 02:14 Temperature 98.0 F Pulse Rate 95 H Respiratory 18 Rate Blood Pressure 135/77 O2 Sat by Pulse 99 Oximetry ED Medical Decision Making - Lab Data Result diagrams: 05/06/21 02:51 05/06/21 02:51 Critical care attestation.: If time is entered above; I have spent that time in minutes in the direct care of this critically ill patient, excluding procedure time. ED Disposition Clinical Impression: Chest pain Disposition: HOME / SELF CARE / HOMELESS Condition: Stable Instructions: Nonspecific Chest Pain, Adult Additional Instructions: Medications as prescribed, follow-up with your doctor in 2 to 3 days. Return to emergency department should symptoms worsen. Prescriptions: Ibuprofen [Motrin 800 MG tab] 800 mg PO Q8HR PRN #30 tablet PRN Reason: pain Famotidine [Pepcid] 20 mg PO BID #30 tablet Referrals: CONNOR TOMLINSON MD [Staff Physician] - 3-5 Days Forms: Work/School Release Form(ED)
[2021-05-06 05:41] VITALS: BP 134/72
--- NOTE | 2021-05-06 10:55 | Electrocardiograph Report ---
[facility] Test Date: 2021-05-06 Test Time: 02:26:04 Pat Name: SHRUTI ZULETA Department: Room: Gender: F Coat [place]: : 1975 Requested By: REYNALDO SHIRLEY Order Number: [id number] Reading MD: Alberto Hudson Measurements Intervals [place] Rate: 101 P: 62 SC: 204 QRS: 13 QRSD: 91 T: 70 QT: 359 QTc: 465 Interpretive Statements Sinus tachycardia Borderline prolonged SC interval No previous ECG available for comparison Electronically Signed On 05-06-2021 10:55:40 EST by Alberto Hudson
== END 2021-05-06 05:42 | disposition home or self-care (01) ==
LOC: ED 02:10
DX: K08.89 Other specified disorders of teeth and supporting structures (principal); Z98.890 Other specified postprocedural states; Z87.891 Personal history of nicotine dependence; Z88.5 Allergy status to narcotic agent; Z79.899 Other long term (current) drug therapy
CPT/HCPCS: 36415; 71046; 80053; 84484; 85025; 93005; 99283